=== PATIENT | female | born 2000 | race African-American/Black ===

== ENCOUNTER 2020-08-16 21:37 | Inpatient (IN) ==
[2020-08-16] MEDS ORDERED: FAMOTIDINE 20 MG/2 ML VIAL IV PRN (22:14)
[2020-08-16] MEDS ORDERED: ONDANSETRON 4 MG/2 ML VIAL IV PRN (22:14)
[2020-08-16] MEDS ORDERED: BUTORPHANOL 2 MG/ML VIAL IV PRN (22:14)
[2020-08-16] MEDS ORDERED: CITRIC ACID/SODIUM CITRATE 30 ML UDCUP PO PRN (22:18)
[2020-08-16 22:40] LABS: Basophils % 0.2 % (0.0-0.8); Eosinophils # 0.1 10*3/uL (0.0-0.87); Eosinophils % 0.6 % (0.00-10.9); Hematocrit 33.1 VOL% (35.7-47.0); Hemoglobin 10.6 GM/DL (12.0-16.0); Immature Granulocytes % 0.7 %; Immature Granulocytes Absolute 0.06 #; Lymphocytes # 1.5 10*3/uL (1.4-4.0); Lymphocytes % 17.3 % (21.3-54.2); Mean Platelet Volume 11.7 FL (9.6-12.0); Monocytes % 6.9 % (1.7-12.7); Neutrophils % 74.3 % (38.7-73.9); Platelet Count 240 T/CUMM (130-400); Red Blood Count 3.94 MC/CUMM (3.8-5.5); Red Cell Distribution Width 14.3 % (9.3-17.3); White Blood Count 8.8 T/CUMM (4-12)
[2020-08-16 23:00] LABS: Alanine Aminotransferase 17 U/L (13-56); Albumin 2.9 G/DL (3.4-5.0); Alkaline Phosphatase 278 U/L (45-117); Aspartate Amino Transferase 23 U/L (0-37); Bilirubin,Total < 0.39 MG/DL (0.2-1.0); Blood Urea Nitrogen 7 MG/DL (7-18); Estimated Glom Filtration Rate 151 ML/MIN; Glucose 73 MG/DL (74-106); Osmolality,Calculated 271.7 MOS/KG (273-304); Total Protein 7.4 G/DL (6.4-8.3)
[2020-08-17] MEDS ORDERED: OXYTOCIN/LR 20 UNIT/1,000 ML BAG IV SCH (01:00)
[2020-08-17] MEDS: MEPERIDINE 50 MG/1 ML VIAL IV PRN ×2 (01:59→04:01)
[2020-08-17] MEDS: LACTATED RINGERS 1,000 ML IV SCH (04:03)
[2020-08-17] MEDS ORDERED: fentaNYL 2 MCG/ROPIV 0.2% EPID 100 ML EPIDURAL ONE (04:09)
[2020-08-17] MEDS ORDERED: ePHEDrine 50 MG/ML VIAL ONE (04:09)
[2020-08-17] MEDS ORDERED: OXYTOCIN 10 UNIT/ML VIAL ONE (07:28)
[2020-08-17] MEDS ORDERED: METHYLERGONOVINE 0.2 MG/1 ML AMP ONE (07:29)
[2020-08-17] MEDS ORDERED: miSOPROStoL 200 MCG TABLET ONE (07:29)
[2020-08-17] MEDS ORDERED: OXYTOCIN/LR 20 UNIT/1,000 ML BAG IV ONE (07:29)
[2020-08-17] MEDS ORDERED: TRANEXAMIC ACID 1,000 MG/10 ML VIAL ONE (07:29)
[2020-08-17] MEDS ORDERED: CARBOPROST TROMETHAMINE 250 MCG/ML AMP IM ONE (07:30)
[2020-08-17] MEDS ORDERED: LIDOCAINE MPF 2% /EPI 20 ML VIAL ONE (07:32)
[2020-08-17] MEDS ORDERED: ONDANSETRON 4 MG/2 ML VIAL ONE (07:32)
[2020-08-17] MEDS ORDERED: DEXAMETHASONE 4 MG/1 ML VIAL ONE (07:33)
[2020-08-17] MEDS ORDERED: ceFAZolin 2,000 MG in PREMIX 1 EACH IV ONE (07:35)
[2020-08-17 08:17] LABS: Bilirubin,Urine Negative (Negative); Blood, Urine Negative (Negative); Glucose,Urine (UA) Negative (Negative); Ketones,Urine 80 mg/dL (Negative); Mucus,Urine Occasional /LPF (Occasional); Nitrite,Urine Negative (Negative); Protein,Urine Negative; RBC,Urine <1 /HPF (0-4); Squamous Epithelial Cell,Urine Occasional /HPF (0-10); Urine Appearance CLEAR (Clear); Urine Color Yellow (Yellow); Urine Urobilinogen < 2.0 EU/DL (0.2-1.0)
[2020-08-17 10:18] LABS: Cord Venous Blood PCO2 50.7 MMHG; Cord Venous Blood PO2 25.6
[2020-08-17] MEDS ORDERED: BISACODYL 10 MG SUPP RECTAL PRN (12:12)
[2020-08-17] MEDS ORDERED: MEASLES/MUMPS/RUBELLA VACCINE 0.5 ML VIAL SUBCUT ONE (12:12)
[2020-08-17] MEDS ORDERED: LANOLIN 50% CREAM 0.3 OZ TUBE TOP PRN (12:12)
[2020-08-17] MEDS ORDERED: RHO(D) IMMUNE GLOBULIN 300 MCG SYRINGE IM ONE (12:12)
[2020-08-17] MEDS ORDERED: oxyCODONE/ACETAMINOPHEN 5-325 MG TABLET PO PRN ×2 (12:12)
[2020-08-17] MEDS ORDERED: HYDROCORTISONE 2.5% RECTAL CREAM 30 GM TUBE TOP PRN (12:12)
[2020-08-17] MEDS ORDERED: ACETAMINOPHEN 325 MG TABLET PO PRN (12:12)
[2020-08-17] MEDS ORDERED: WITCH HAZEL PADS 100/JAR TOP PRN (12:12)
[2020-08-17] MEDS ORDERED: BENZOCAINE 20%/MENTHOL 0.5% SPRAY 56 GM CAN TOP PRN (12:12)
[2020-08-17] MEDS ORDERED: DIPH/TET/ACEL PERT BOOSTER VACCINE 0.5 ML VIAL IM ONE (12:12)
[2020-08-17] MEDS: IBUPROFEN 800 MG TABLET PO PRN ×2 (17:00→23:17)
[2020-08-17] MEDS: DOCUSATE SODIUM 100 MG CAPSULE PO SCH (20:47)
[2020-08-18 06:11] LABS: Basophils # 0.1 10*3/uL (0.0-0.2); Basophils % 0.4 % (0.0-0.8); Eosinophils # 0.1 10*3/uL (0.0-0.87); Hematocrit 32.1 VOL% (35.7-47.0); Hemoglobin 10.5 GM/DL (12.0-16.0); Immature Granulocytes % 0.5 %; Immature Granulocytes Absolute 0.06 #; Lymphocytes # 2.6 10*3/uL (1.4-4.0); Lymphocytes % 20.8 % (21.3-54.2); Mean Corpuscular HGB Conc 32.7 GM/DL (32-36); Mean Platelet Volume 12.4 FL (9.6-12.0); Neutrophils % 70.3 % (38.7-73.9); Platelet Count 210 T/CUMM (130-400); Red Blood Count 3.82 MC/CUMM (3.8-5.5); Red Cell Distribution Width 14.4 % (9.3-17.3); White Blood Count 12.6 T/CUMM (4-12)
[2020-08-18] MEDS: DOCUSATE SODIUM 100 MG CAPSULE PO SCH ×2 (09:10→20:38)
[2020-08-18] MEDS: FERROUS SULFATE 325 MG TABLET PO SCH ×2 (09:10→20:38)
[2020-08-18] MEDS: IBUPROFEN 800 MG TABLET PO PRN (20:39)
[2020-08-19 07:35] VITALS: BP 109/53
[2020-08-19] MEDS: FERROUS SULFATE 325 MG TABLET PO SCH (09:50)
[2020-08-19] MEDS: DOCUSATE SODIUM 100 MG CAPSULE PO SCH (09:51)
== END 2020-08-19 12:30 | disposition home or self-care (01) | DRG 807 ==
LOC: N.LDOUT 21:37 → N.LD 21:41 → N.OB 08-17 11:45
PROVIDERS: ADMIT Obstetrics & Gynecology; ATTEND Obstetrics & Gynecology